=== PATIENT | female | born 1990 | race African-American/Black ===

== ENCOUNTER 2025-08-06 10:54 | Outpatient (REF) | payer OTHER, SELFPAY ==
[2025-08-06 13:15] LABS: Appearance Urine Clear; Glucose Urine UA Negative (Negative); PH 5.5 (5.0-9.0); Specific Gravity - Urine 1.010 (1.005-1.025)
[2025-08-06 13:19] LABS: MANUAL DIFF FLAG NO
[2025-08-06 13:27] LABS: Hematocrit 34.6 % (37.0-47.0); Hemoglobin 10.5 g/dl (12.0-16.0); Imm Gran Abs Auto 0.04 X10*3/uL (0.00-0.03); Imm Gran Pct Auto 0.4 % (0.0-0.4); Lymphocytes Absolute Auto 3.1 X10*3/uL (1.2-4.9); Mean Corpuscular HGB Conc 30.3 g/dl (31.0-35.0); Mean Corpuscular Hemoglobin 27.1 pg (27.0-33.0); Mean Corpuscular Volume 89.4 fL (80.0-98.0); NRBC Abs Auto 0.000 X10*3/uL (0.0-0.012); NRBC Pct Auto 0.0 /100WBC (0.0-0.2); Platelet Count 494 X10*3/uL (160-400); Red Blood Count 3.87 X10*6/uL (4.20-5.50); White Blood Count 10.1 X10*3/uL (4.8-10.8)
[2025-08-06 19:06] LABS: Alanine Aminotransferase 14 U/L (0-31); Albumin Level 3.9 g/dL (3.5-5.0); Alkaline Phosphatase 79 U/L (39-117); Anion Gap 11 (12-20); Aspartate Amino Transferase 30 U/L (5-31); Blood Urea Nitrogen 7 mg/dL (9-16); Calcium 8.9 mg/dL (8.4-10.2); Carbon Dioxide 26 mmol/L (22-29); Chloride 104 mmol/L (96-108); Cholesterol 160 mg/dL (<200); Estimated Glomerular Filt Rate > 60; HDL Cholesterol 59 mg/dL (>40); Magnesium 2.2 mg/dL (1.6-2.6); Potassium 3.5 mmol/L (3.3-5.1); Sodium 137 mmol/L (135-145); Total Protein 7.8 g/dL (6.5-8.0); Triglycerides 81 mg/dL (<150)
[2025-08-06 19:28] LABS: Folate 5.8 ng/mL (> or = 4.0); Vitamin B12 695 pg/mL (200-900)
[2025-08-07 08:20] LABS: HBS Num1 3.74 mIU/mL (0-7.99); HBsAGNum1 0.39 S/CO (0.00-0.99); HIV Num 1 0.05 S/CO (0.00-0.99); Hepatitis B Surface Antigen Negative (Negative); ~HepC Num1 0.28 S/CO (0.00-0.79); ~Hepatitis B Surface Antibody NONREACTIVE (Nonreactive); ~Hepatitis C Antibody Nonreactive (Nonreactive)
[2025-08-11 08:59] LABS: VITAMIN D (1,25 OH) D3 50 pg/mL; Vit D (1,25-Dihydroxy) Total 50 pg/mL (18-72); Vitamin D (1,25 OH) D2 <8 pg/mL
== END 2025-08-06 10:55 | disposition home or self-care (01) ==
LOC: HO.HKASLDS 10:54
PROVIDERS: PCP Student in an Organized Health Care Education/Training Program; Visit Provider Student in an Organized Health Care Education/Training Program
DX: G43.E09 Chronic migraine with aura, not intractable, without status migrainosus (principal); E66.3 Overweight; Z13.1 Encounter for screening for diabetes mellitus; Z68.28 Body mass index [BMI] 28.0-28.9, adult
CPT/HCPCS: 36415; 80053; 80061; 81003; 82607; 82652; 82746; 83036; 83735; 84443; 85025; 86706; 86803; 87340; 87389; 96127; 99202

== ENCOUNTER 2025-08-06 10:54 | Outpatient (AMB) | payer OTHER, SELFPAY ==
--- NOTE | 2025-08-06 10:57 | A.OFFPC_ITS ---
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 Required: No Accompanied by: Self / Same As Patient Allergies shellfish derived (shellfish) Allergy (Intermediate, Verified 08/06/25 11:01) Swelling strawberry Allergy (Intermediate, Verified 08/06/25 11:01) Swelling Medication List - Last Reconciled 08/06/25 by Hoang Bowen MD sumatriptan succinate 25 mg PO Q2-4H PRN Tobacco use date assessed: 08/06/25 Dental Screening Dental Screen Date: 08/06/25 Did you have a dental visit in the last 12 months?: No Did you have a dental problem in the last 6 months where you did not have access to dental care?: Yes Was dental information given to patient?: Patient has dentist HPI HPI Comments History of Present Illness Details History of Present Illness The patient is a 35-year-old individual presenting with a recurrence of chronic migraines. Chronic Migraine: The patient has a long-standing history of chronic migraines, which have recently returned. Associated symptoms include seeing spots, dizziness, and cephalalgia. The most recent migraine occurred this morning. The patient has previously taken sumatriptan, which was effective, and recalls taking another medication for prophylaxis but cannot remember the name. Health Maintenance: The patient is not up to date with Pap smears and requested a referral for cervical cancer screening. Surgical History: - No prior surgical history reported. Medications: - Sumatriptan for migraines, dose not re called but possibly 15 mg - Reports a previous prophylactic migrai ne medication but could not recall the name; options like topiramate or propranolol sounded familiar Social History: - Substance Use: The patient denies smok ing or illicit drug use and reports occasional alcohol consumption. 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 - Family Status: The patient has three c hildren. - Sleep: Reports sleeping okay. Past Medical History - Chronic migraines - History of a large region of shelf is irene - The patient denies any other medical h istory or prior hospitalizations. Health Maintenance - The patient is not up to date with Pap smears and a referral to an PRODUCT INSPECTION SUPERVISOR for cervical cancer screening was provided. - Comprehensive bloodwork was ordered, i ncluding a CBC, CMP, hemoglobin A1c, lipid panel, thyroid studies, urinalysis, vitamin B12, folate, and vitamin D. [facility] Medical History (Updated 08/06/25 @ 11:18 by Hoang Bowen MD) Overweight (BMI 25.0-29.9) Chronic migraine with aura Screening for malignant neoplasm of cervix Family History (Updated 08/06/25 @ 11:04 by Adam Huston CMA) Maternal Grandmother Substance abuse Asthma Maternal Uncle Substance abuse Asthma Paternal Grandmother Substance abuse Paternal Uncle Substance abuse Cancer Father Cancer Paternal Aunt Cancer Paternal Grandmother Cancer Son Asthma Daughter Asthma Mother Asthma Social History (Updated 08/06/25 @ 11:05 by Adam Huston [facility]) Housing: House Alcohol intake: current Patient Tobacco Use Status: Never used Tobacco e-Cigarette/Vaping Use: Never Used service: No Current occupational status: employed 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 1. Little interest or pleasure in doing things: several days 2. Feeling down, depressed, or hopeless: not at all 3. Trouble falling or staying asleep, or sleeping too much: several days 4. Feeling tired or having little energy: several days 5. Poor appetite or overeating: not at all 6. Feeling bad about yourself - or that you are a failure or have let yourself or your family down: not at all 7. Trouble concentrating on things, such as reading the newspaper or watching television: not at all 8. Moving or speaking so slowly that other people could have noticed. Or the opposite - being so fidgety or restless that you have been moving around a lot more than usual: not at all 9. Thoughts that you would be better off or of hurting yourself in some way: not at all Total score: 3 Depression Screening Interpretation: Negative Depression Screening Done: Yes 65045 - PHQ-9 Billing: Yes Source: Developed by Drs. Charles L. PumaJoyce aguirre Kurt Kroenke and colleagues, with an educational alyssa from [employer]. Thrive Questionnaire Date Thrive assessed: 08/05/25 I am a: Patient What is your living situation today?: I have a steady place to live Within the past 12 months, did the food you bought not last and you didn't have the money to get more?: Never true Within the past 12 months, did you worry whether your food would run out before you got money to buy more?: Never true Do you have trouble paying for medicines?: No Do you have trouble getting transportation to medical appointments?: No Do you have trouble paying your heating and electricity bill?: No Do you have trouble taking care of your child, family member or friend?: No Do you have trouble with day-to-day activities such as bathing, preparing meals, shopping, managing finances, etc.?: No Are you currently unemployed and looking for a job?: No Are you interested in more education?: Yes Please select the resources that you would like help with: Education Currently or been in a relationship where the following occur: No concerns reported THRIVE Score: 0 AUDIT C Alcohol Use Questionnaire (AUDIT-C) 1. How often do you have a drink containing alcohol?: 2-4 times a month 2. How many drinks containing alcohol do you have on a typical day when you are drinking?: 3 or 4 3. How often do you have six or more drinks on one occasion?: Less than monthly Total Score: 4 KIM-7 AMB Questionnaire KIM-7 Date KIM - 7 assessed: 08/06/25 Feeling nervous, anxious, or on edge: 1 = Several days Not being able to stop or control worryin = Several days Worrying too much about different things: 1 = Several days Trouble relaxin = Several days Being so restless that it is hard to sit still: 1 = Several days Becoming easily annoyed or irritable: 1 = Several days Feeling afraid as if something awful might happen: 0 = Not at all Total KIM-7 score (0-4 normal; 5-9 mild; 10-14 moderate; 15-21 severe): 6 Source: Developed by Joyce Schumacher Kurt Kroenke and colleagues, with an educational alyssa from [employer]. KIM-7 Assessment Billing KIM-7 Assessment Tool: KIM-7 Assessment 81751 Review of Systems Narrative Review of Systems - Neurological: Reports recurrent headaches, dizziness, and seeing spots. - Gastrointestinal: Denies abdominal pain. - Constitutional: Reports sleeping okay. - Extremities: Denies lower leg swelling. - Genitourinary: Reports normal urination and bowel movements. 10-point ROS reviewed and negative except as noted in HPI Physical exam (Primary Care) Vital Signs: Last Vital Signs Temp 98 F 08/06/25 11:05 Pulse 109 H 08/06/25 11:05 Resp 20 08/06/25 11:05 BP 122/84 08/06/25 11:05 Pulse Ox 98 08/06/25 11:05 Oxygen Delivery Method Room Air 08/06/25 11:05 BMI result Body Mass Index 28.2 Tobacco/Smoking Status: Tobacco use Status Tobacco use date assessed 08/06/25 08/06/25 11:05 Patient Tobacco Use Status Never used Tobacco 08/06/25 11:05 e-Cigarette/Vaping Use Never Used 08/06/25 11:05 PHQ-9: PHQ-9 Score PHQ-9: Total score 3 08/06/25 11:05 Depression Screening Interpretation: Negative Thrive Assessment: Date of Thrive Assessment Date Thrive assessed 08/05/25 08/06/25 10:59 Currently or been in a relationship where the following occur: No concerns reported Narrative Physical Exam General: Well-appearing, in no acute distress. Vital signs: Within normal limits. HEENT: Normocephalic, atraumatic. PERRLA, EOMI. Conjunctiva clear, sclera anicteric. Oropharynx clear, mucous membranes moist. TMs intact bilaterally. Neck: Supple, no lymphadenopathy, no thyromegaly, no JVD or carotid bruits. Cardiovascular: RRR, normal S1/S2, no murmurs, rubs, or gallops. Peripheral pulses 2+ and symmetric. No edema. Respiratory: Lungs clear to auscultation bilaterally, no wheezes, rales, or rhonchi. Normal effort. Abdomen: Soft, non-tender, non-distended. Normoactive bowel sounds. No hepatosplenomegaly, no masses. MSK: Full range of motion, no joint swelling or deformity. Normal gait. Skin: Warm, dry, intact. No rashes, lesions, or pallor. Neuro: Alert and oriented x3. Cranial nerves II-XII intact. Strength 5/5 throughout. Sensation intact. Reflexes 2+ symmetric. Normal coordination and gait. Psych: Appropriate mood and affect. Normal judgment and insight. Coding Level of Care Code New Pt Level 4 (54169) Diagnoses Chronic migraine with aura G43.E09 Screening for malignant neoplasm of cervix Z12.4 Overweight (BMI 25.0-29.9) E66.3 Additional Codes KIM-7 Assessment Billing - KIM-7 Assessment Tool: KIM-7 Assessment 12076 ([id number]) PHQ-9 - 64599 - PHQ-9 Billing: Yes ([id number]) Assessment & Plan Assessment & Plan (1) Chronic migraine with aura: Code(s): G43.E09 - Chronic migraine with aura, not intractable, without status migrainosus Category: Medical (2) Screening for malignant neoplasm of cervix: Code(s): Z12.4 - Encounter for screening for malignant neoplasm of cervix Category: Medical (3) Overweight (BMI 25.0-29.9): Code(s): E66.3 - Overweight Category: Medical Plan Consent The plan of care, including bloodwork, a new prescription, a referral, and a follow-up visit, was discussed with the patient, who verbally agreed to the plan. Patient was informed and verbally consented to the use of an ambient scribe for clinic note documentation during this visit. Plan 1. Chronic Migraine - Prescribed sumatriptan 25 mg for abortive therapy. - Instructed the patient to identify the name of the previous prophylactic medication and inform the clinic. - Ordered comprehensive lab work, including CBC, CMP, hemoglobin A1c, lipid panel, thyroid screen, urinalysis, vitamin B12, folate, and vitamin D, to be d rawn today. - Scheduled a follow-up appointment in two weeks to review lab results. 2. Cervical Cancer Screening - A referral will be sent to an PRODUCT INSPECTION SUPERVISOR for a Pap smear. - The PRODUCT INSPECTION SUPERVISOR office will contact the patient directly to schedule the appointment. Discussion Notes I discussed the plan to manage the patient's recurrent migraines, which includes restarting abortive therapy with sumatriptan 25 mg. I explained that we would order comprehensive bloodwork to investigate for any underlying causes. I encouraged the patient to try and recall the name of the previous prophylactic medication, as it would be beneficial for preventing future headaches. A referral for a Pap smear was provided for routine health maintenance. We will follow up in two weeks to review the lab results and further discuss the management plan. Patient Instructions - Take sumatriptan 25 mg for migraine headaches. - Please try to find out the name of the other migraine medication you were taking and let my staff know. - You will have blood work done today. - The PRODUCT INSPECTION SUPERVISOR office will call you to schedule your appointment for a Pap smear. - Please make a follow-up appointment for two weeks from now to discuss your t est results. Medical Decision Making The patient is a 35-year-old individual with a history of chronic migraines presenting with a recurrence of symptoms, including cephalalgia, dizziness, and visual disturbances. The primary objective is to regain control of the patient's migraines. Given a reported history of efficacy, I am prescribing sumatriptan 25 mg for abortive therapy. The patient's recollection of a prior prophylactic medication suggests that re-initiating such therapy will be mix to long-term management, and the patient has been asked to identify this medication. To rule out metabolic or endocrine triggers, comprehensive lab work including a CBC, CMP, A1c, lipid panel, and thyroid studies is indicated. A referral for a Pap smear is provided for routine health maintenance. A follow-up in two weeks is planned to review lab results and adjust the treatment plan accordingly. Total Time Statement 30 min Total time spent caring for the patient today includes pre-visit chart review, documentation, review of laboratory and diagnostic imaging results, medication reconciliation, medically necessary evaluation, counseling on diagnoses, care coordination, ordering appropriate tests and medications, review of tests performed by other providers, reporting test results to the patient, and communication with other healthcare providers. Orders: Orders Complete Blood Count Auto Diff Today Z13.9 - Encounter for screening, unspecified Hepatitis B Surface Antigen Today Z13.9 - Encounter for screening, unspecified Comprehensive Met. Panel Today Z13.9 - Encounter for screening, unspecified Vitamin B12 and Folate Today Z13.9 - Encounter for screening, unspecified Hemoglobin A1c Today Z13.9 - Encounter for screening, unspecified Vitamin D 1,25 dihydroxy Today Z13.9 - Encounter for screening, unspecified Hepatitis C Antibody Today Z13.9 - Encounter for screening, unspecified TSH reflex Free T4 Today Z13.9 - Encounter for screening, unspecified HIV Ab/Ag Today Z13.9 - Encounter for screening, unspecified UA CC w/rflx Micro + Cult Today Z13.9 - Encounter for screening, unspecified Lipid Panel Today Z13.9 - Encounter for screening, unspecified Magnesium Today Z13.9 - Encounter for screening, unspecified Hepatitis B Surface Antibody Today Z13.9 - Encounter for screening, unspecified Referrals PRODUCT INSPECTION SUPERVISOR Referral Z12.4 - Encounter for screening for malignant neoplasm of cervix Medications: New sumatriptan succinate do not exceed 8 doses per 24 hrs 25 mg PO Q2-4H PRN 20 tabs 0RF migraine headache
[2025-08-06 11:05] VITALS: BP 122/84; PULSE 109; RESP 20; TEMP 36.6; O2SAT 98; BMI 28.2
--- OUTSIDE RECORDS SUMMARY | 2025-08-06 11:47 | XMS_ITS | Clinical Summary ---
Author Organization [facility] Address [address] [place] [address] Phone Care Team Providers Care Product Development Ecologist Name Role Phone Unavailable Primary Care Provider Unavailabl e Allergies Active Allergy Reactions Criticality Noted Date Comments Shellfish Derived Dizziness,Headache,H osman,Itching,Ra sh,Respiratory Issues,Shortness of breath,Swelling High 07/27/2022 [place] Hives,Itching,Swelling 07/27/2022 Medications SUMAtriptan (IMITREX) 50 mg tabletIndicatio ns:Other migraine without status migrainosus, not intractable Take 1 tablet (50 mg total) by mouth 1 (one) time if needed for migraine. May repeat after 2 hours. 27 tablet 3 3 Active methylPREDNISol one (MEDROL DOSPAK) 4 mg tabletIndicatio ns:Neck pain TAKE BY MOUTH INSTRUCTED - PER PACKAGE INSTRUCTIONS 21 tablet 3 Active Active Problems Problem Noted Date Diagnosed Date Migraine without status migrainosus, not intract able 09/30/2022 Neck pain 09/30/2022 Social History Tobacco Use Types Packs/Day Years Used Date Smoking Tobacco: Never Assessed Housing Instability Answer Date Recorde d Are you worried that in the next 2 months you may not have stable housing? No 07/27/2022 Food Access & Nutrition Answer Date Rec orded Do you have access to a vari ety of food including fruits and vegetables? Yes 07/27/2022 Access to Healthcare Answer Date Record ed Within the last 3 months, ho w many times did you visit the emergency department for your medical care? 0 07/27/2022 Health Literacy Answer Date Recorded How often do you need to hav e someone help you when you read instructions, pamphlets, or other written material from your doctor or pharmacy? Never 07/27/2022 Caregiver: How often do you need to have someone help you when you read instructions, pamphlets, or other written material from your doctor or pharmacy? Not on file 07/27/2022 Financial Risk Answer Date Recorded How hard is it for you to pa y for the very basics like food, housing, medical care, and air conditioning / heating? Not very hard 07/27/2022 Transportation Answer Date Recorded Has the lack of transportati on kept you from meetings, work, or from getting things needed for daily living? No Has the lack of transportati on kept you from medical appointments or from getting medications? No 07/27/2022 Social Isolation Answer Date Recorded How often do you feel lonely or isolated from th ose around you? Never 07/27/2022 Food Risk Answer Date Recorded Within the past 12 months we worried whether our food would run out before we got money to buy more. Never true 07/27/2022 Within the past 12 months th e food we bought just didn't last and we didn't have money to get more. Never true 07/27/2022 Comments Unknown Sex and Gender Information Value Date Recorded Sex Assigned at Female 07/06/2022 4:48 PM EDT Legal Sex Female 6:03 PM EDT Gender Identity Female 07/06/2022 4:48 PM EDT Sexual Orientation Not on file Last Filed Vital Signs Vital Sign Reading Time Taken Comments Blood Pressure 141/77 07/27/2022 9:50 AM EST Pulse 86 07/27/2022 9:50 AM EST Temperature - - Respiratory Rate 16 07/27/2022 9:50 AM EST Oxygen Saturation - - Inhaled Oxygen Concentration - - Weight 70.3 kg (155 lb) 07/27/2022 9:50 AM EST Height 153 cm (5' 0.25 ) 03/14/2020 12:00 AM EDT Body Mass Index 30.02 03/14/2020 12:00 AM EDT Plan of Treatment Health Maintenance Due Date Last Done Comments DTaP,Tdap,and Td Vaccines (1 - Tdap) 01/30/2007 Hepatitis B Vaccines (1 of 3 - 19+ 3-dose series) 01/30/2007 Cervical Cancer Screening: P ap Smear 01/30/2009 HPV Vaccines (1 - 3-dose SCD M series) 01/30/2015 HIV Screening 03/25/2021 Hepatitis C Screening 03/25/2021 Social Influencers of Health Screening 03/25/2021 Depression Screening 09/16/2024 COVID-19 Vaccine (3 - 2024-2 6 season) 2025 02/14/2021, 01/23/2021 Influenza Vaccine (#1) 2025 RSV Immunization Adult Patients (1 - 1-dose 75+ series) 01/30/2063 HIB Vaccines Aged Out No longer eligi ble based on patient's age to complete this topic Hepatitis A Vaccines Aged Out No long er eligible based on patient's age to complete this topic IPV Vaccines Aged Out No longer eligi ble based on patient's age to complete this topic MMR Vaccines Aged Out No longer eligi ble based on patient's age to complete this topic Meningococcal ACWY Vaccine Aged Out N o longer eligible based on patient's age to complete this topic Meningococcal B Vaccine Aged Out No l onger eligible based on patient's age to complete this topic Pneumococcal Vaccine: Pediatrics (0 to 5 Years) and At-Risk Patients (6 to 49 Years) Aged Out No longer eligible b ased on patient's age to complete this topic RSV Immunization Patients Under 20 months Aged Out No longer eligible b ased on patient's age to complete this topic Varicella Vaccines Aged Out No longer eligible based on patient's age to complete this topic Insurance [employer]
== END 2025-08-06 11:18 | disposition home or self-care (01) ==
LOC: HO.HMCFMS 10:55
PROVIDERS: Visit Provider Student in an Organized Health Care Education/Training Program
DX: G43.E09 Chronic migraine with aura, not intractable, without status migrainosus (principal); Z12.4 Encounter for screening for malignant neoplasm of cervix; E66.3 Overweight